=== PATIENT | male | born 1945 | race Caucasian/White ===

== ENCOUNTER 2021-10-02 21:24 | Observation (INO) ==
[2021-10-02 21:47] LABS: Basophils % 0.3 % (0.0-0.8); Eosinophils % 0.1 % (0.00-10.9); Hematocrit 32.2 VOL% (42.0-52.0); Hemoglobin 10.3 GM/DL (14.0-18.0); Immature Granulocytes % 1.6 %; Immature Granulocytes Absolute 0.18 #; Lymphocytes # 0.8 10*3/uL (1.4-4.0); Lymphocytes % 7.1 % (21.2-54.2); Mean Corpuscular Volume 94.7 FL (87-102); Mean Platelet Volume 8.9 FL (9.6-12.0); Neutrophils % 82.9 % (38.7-73.9); Platelet Count 225 T/CUMM (130-400); Red Cell Distribution Width 14.1 % (9.3-17.3)
[2021-10-02] MEDS ORDERED: ASPIRIN CHEW 81 MG TABLET PO STA (21:53)
[2021-10-02 22:06] LABS: Albumin 2.6 G/DL (3.4-5.0); Bilirubin,Total 0.5 MG/DL (0.20-1.00); Calcium 8.9 MG/DL (8.5-10.1); Osmolality,Calculated 287.1 MOS/KG (273-304); Potassium 4.7 MMOL/L (3.5-5.1); Total Protein 6.4 G/DL (6.4-8.2)
[2021-10-02] MEDS ORDERED: NITROGLYCERIN SL 0.4 MG TABLET SL ONE (22:11)
[2021-10-02] MEDS: NITROGLYCERIN SL 0.4 MG TABLET SL PRN ×2 (22:12→22:17)
[2021-10-02 22:19] LABS: Eosinophils 2 % (0-10); Lymphocytes 5 % (20-55); Segmented Neutrophils 88 % (50-85); Total Cells Counted 100
[2021-10-02 22:20] LABS: Hypochromia 1+; Platelet Estimate Normal
[2021-10-03] MEDS ORDERED: MAGNESIUM SULF RIDER 4 GM/100 ML PREMIX IV PRN (02:09)
[2021-10-03] MEDS ORDERED: NITROGLYCERIN SL 0.4 MG TABLET SL PRN (02:09)
[2021-10-03] MEDS ORDERED: MAGNESIUM SULF RIDER 2 GM/50 ML PREMIX IV PRN (02:09)
[2021-10-03] MEDS ORDERED: POTASSIUM CHLORIDE 20 MEQ TABLET PO PRN (02:09)
[2021-10-03] MEDS ORDERED: MORPHINE 2 MG/1 ML SYRINGE IV PRN (02:09)
[2021-10-03] MEDS ORDERED: ONDANSETRON 4 MG/2 ML VIAL IV PRN (02:09)
[2021-10-03] MEDS ORDERED: GLUCAGON 1 MG VIAL IM PRN (02:09)
[2021-10-03] MEDS ORDERED: ENOXAPARIN 40 MG/0.4 ML SYRINGE SUBCUT SCH (02:30)
[2021-10-03] MEDS ORDERED: DEXTROSE 50% 25 GM/50 ML SYRINGE IV PRN (02:32)
[2021-10-03 03:12] LABS: PT Patient Result 11.2 SECS (10.5-12.0); Partial Thromboplastin Time 25.1 SECS (23.8-32.1)
[2021-10-03 06:02] LABS: Basophils % 0.4 % (0.0-0.8); Eosinophils % 0.1 % (0.00-10.9); Hematocrit 27.9 VOL% (42.0-52.0); Immature Granulocytes % 1.3 %; Lymphocytes # 1.3 10*3/uL (1.4-4.0); Lymphocytes % 16.7 % (21.2-54.2); Mean Corpuscular HGB Conc 32.3 GM/DL (32-36); Mean Corpuscular Volume 93.6 FL (87-102); Mean Platelet Volume 9.2 FL (9.6-12.0); Neutrophils % 74.5 % (38.7-73.9); Platelet Count 197 T/CUMM (130-400); Red Blood Count 2.98 MC/CUMM (3.8-5.5); Red Cell Distribution Width 14.1 % (9.3-17.3); White Blood Count 7.9 T/CUMM (4-12)
[2021-10-03 06:17] LABS: Risk Ratio 2.74; VLDL Cholesterol 14.2 MG/DL
[2021-10-03 06:23] LABS: Hypochromia 1+; Lymphocytes 15 % (20-55); Microcytosis 1+; Platelet Estimate Adequate; Segmented Neutrophils 82 % (50-85); Total Cells Counted 100
[2021-10-03] MEDS ORDERED: INSULIN REGULAR 100 UNIT/ML SUBCUT SCH (07:30)
[2021-10-03] MEDS ORDERED: PANTOPRAZOLE 40 MG TABLET PO SCH (09:00)
[2021-10-03 09:29] LABS: Basophils % 0.4 % (0.0-0.8); Eosinophils % 0.4 % (0.00-10.9); Hematocrit 30.4 VOL% (42.0-52.0); Hemoglobin 9.9 GM/DL (14.0-18.0); Immature Granulocytes % 1.7 %; Immature Granulocytes Absolute 0.12 #; Lymphocytes # 0.8 10*3/uL (1.4-4.0); Lymphocytes % 10.5 % (21.2-54.2); Mean Corpuscular HGB Conc 32.6 GM/DL (32-36); Monocytes % 6.1 % (1.7-12.7); Neutrophils % 80.9 % (38.7-73.9); Platelet Count 191 T/CUMM (130-400); Red Blood Count 3.27 MC/CUMM (3.8-5.5); Red Cell Distribution Width 14.1 % (9.3-17.3); White Blood Count 7.2 T/CUMM (4-12)
[2021-10-03 09:54] LABS: HDL Cholesterol 38 MG/DL (40-60); Risk Ratio 2.68; Triglycerides 94 MG/DL (2-150); VLDL Cholesterol 18.8 MG/DL
[2021-10-03 09:57] LABS: Hypochromia 1+; Lymphocytes 7 % (20-55); Microcytosis 1+; Platelet Estimate Adequate; Segmented Neutrophils 86 % (50-85); Total Cells Counted 100
[2021-10-03 10:08] VITALS: BP 128/61
[2021-10-04] MEDS ORDERED: ASPIRIN EC 325 MG TABLET PO SCH (09:00)
== END 2021-10-03 13:57 | disposition home or self-care (01) ==
LOC: EDBD → EDUNIT# → N.ED 21:24 → N.EDINP 21:24 → N.TELEN 10-03 03:09
PROVIDERS: ADMIT Internal Medicine; ATTEND Internal Medicine